=== PATIENT | male | born 1990 | race Asian ===

== ENCOUNTER 2020-08-23 10:43 | Emergency (ER) | payer SELFPAY ==
[~2020-08-23] VITALS: Ht 170.2 cm; Wt 59.1 kg
[2020-08-23 13:32] VITALS: BP 133/76
== END 2020-08-23 13:46 | disposition home or self-care (01) ==
LOC: EMS 10:53
DX: J02.9 Acute pharyngitis, unspecified (principal); F17.200 Nicotine dependence, unspecified, uncomplicated; F12.90 Cannabis use, unspecified, uncomplicated
CPT/HCPCS: 87430; 99283